=== PATIENT | male | born 1965 | race Caucasian/White ===

== ENCOUNTER 2022-10-30 18:29 | Emergency (ER) | payer OTHER, SELFPAY ==
[2022-10-30] VITALS (22 sets, daily range): BP systolic 112–140; BP diastolic 76–86; PULSE 95–116; TEMP 36.7; O2SAT 93–96; BMI 30.5
--- NOTE | 2022-10-30 20:03 | ED.ABDPAIN ---
HPI - Abdominal Pain General Time Seen by Provider: 20:03 Date Seen: 10/30/22 Chief Complaint: Abdominal Pain Stated Complaint: Jaundice, Dehydrated, Vomiting Time Seen by Provider: 10/30/22 20:02 Source: patient and RN notes reviewed Mode of arrival: ambulatory Limitations: no limitations History of Present Illness HPI narrative: Amee is a very pleasant 56-year-old male it is status post liver transplant, Guy-[place] why secondary to bile leak who comes to the emergency room for evaluation regarding jaundice and abdominal pain and nausea. Patient notes that over the past few days he has noticed yellowing of his skin and his eyes. He notes that the does have nausea and 2 nights ago had significant number of vomiting events. Today he has been able to take fluids and he was even able to drink and insure on the way here. He does state the nausea is somewhat persistent though. He notes that he has constant diarrhea and this has really not changed. He has a history of ulcerative colitis that resulted salted in a colectomy with a J-pouch dosed. He notes that her earlier today he did have some dysuria and his urine seemed dark brown. In July he was seen for his yearly appointment by his liver transplant team at [facility]. Family notes no worrisome findings at that time. In August of this year upon her return from a vagus trip he did have COVID but the symptoms were mild and he did not have to take any additional medications. Note that he is vaccinated and boosted. Four weeks ago he came down with influenza any describes that is much worse than COVID with episodes of vomiting and high fevers up to 103. He did recover from that although he still has an occasional cough. Today he notes no fevers or chills. He does have abdominal pain but did ask is declining any pain medication at this time. Related Data Home Medications Medication Instructions Recorded Confirmed albuterol 90 mcg/actuation aerosol 90 mcg inhalation DAILY PRN 10/30/22 10/30/22 inhaler aspirin 81 mg capsule 81 mg PO DAILY 10/30/22 10/30/22 febuxostat 40 mg tablet 40 mg PO DAILY 10/30/22 10/30/22 fluticasone 250 mcg-salmeterol 50 1 inh inhalation DAILY 10/30/22 10/30/22 mcg/dose blistr powdr for inhalation (Advair Diskus) metronidazole 250 mg tablet 250 mg PO DAILY PRN 10/30/22 10/30/22 montelukast 10 mg tablet 10 mg PO DAILY 10/30/22 10/30/22 omeprazole 40 mg capsule,delayed 40 mg PO DAILY 10/30/22 10/30/22 release ondansetron HCl 4 mg tablet 4 mg PO BID-TID PRN 10/30/22 10/30/22 Allergies Allergy/AdvReac Type Severity Reaction Status Date / Time allopurinol Allergy Severe shortness Verified 10/30/22 18:42 of breath ciprofloxacin Allergy Severe Rash Verified 10/30/22 18:42 chlorhexidine AdvReac Intermediate Rash Verified 10/30/22 18:42 Exam Const: Vital Signs, click to edit/add: Vital Signs - 24 hr 10/30/22 18:36 10/30/22 19:46 10/30/22 20:00 Temperature 98.1 F Pulse Rate 112 H 104 H Pulse Rate [Pulse Oximeter] 116 H Blood Pressure Blood Pressure [Ri ght Upper Arm] 115/78 Pulse Oximetry 94 96 [facility] 10/30/22 20:15 10/30/22 20:28 10/30/22 20:31 Temperature Pulse Rate 111 H Pulse Rate [Pulse Oximeter] Blood Pressure 126/85 122/78 Blood Pressure [Ri ght Upper Arm] Pulse Oximetry [facility] 10/30/22 21:01 10/30/22 21:04 10/30/22 21:22 Temperature Pulse Rate 108 H 102 H Pulse Rate [Pulse Oximeter] Blood Pressure 121/76 Blood Pressure [Ri ght Upper Arm] Pulse Oximetry 94 [facility] 10/30/22 21:30 10/30/22 21:31 10/30/22 21:45 Temperature Pulse Rate 102 H 102 H 104 H Pulse Rate [Pulse Oximeter] Blood Pressure 112/76 Blood Pressure [Ri ght Upper Arm] Pulse Oximetry 94 93 94 Oxygen Delivery Me thod 10/30/22 22:01 10/30/22 22:32 10/30/22 22:48 Temperature Pulse Rate 101 H Pulse Rate [Pulse Oximeter] Blood Pressure 121/80 140/82 H Blood Pressure [Ri ght Upper Arm] Pulse Oximetry 95 Oxygen Delivery Me thod 10/30/22 23:00 10/30/22 23:01 10/31/22 00:11 Temperature 98.6 F Pulse Rate 102 H 98 Pulse Rate [Pulse Oximeter] Blood Pressure 136/86 Blood Pressure [Ri ght Upper Arm] Pulse Oximetry 93 94 Oxygen Delivery Me thod 10/30/22 23:02 10/30/22 23:15 10/30/22 23:32 Temperature Pulse Rate 96 95 96 Pulse Rate [Pulse Oximeter] Blood Pressure 123/79 Blood Pressure [Ri ght Upper Arm] Pulse Oximetry 94 93 95 Oxygen Delivery Me thod 10/30/22 23:33 10/30/22 23:45 10/31/22 00:00 Temperature Pulse Rate 98 98 96 Pulse Rate [Pulse Oximeter] Blood Pressure Blood Pressure [Ri ght Upper Arm] Pulse Oximetry 93 93 94 Oxygen Delivery Me thod 10/31/22 00:01 Temperature Pulse Rate 97 Pulse Rate [Pulse Oximeter] Blood Pressure 118/77 Blood Pressure [Ri ght Upper Arm] Pulse Oximetry 93 Oxygen Delivery Me thod Course Course Hospital Course: will place an IV and obtain labs to include CBC, basic panel, liver function tests, lipase, CRP, urinalysis, chest x-ray. Will give 1 L of normal saline and Zofran 4 mg IV. Plan on discussion with transplant team at [facility] once these results have Been returned Reevaluation(s) Reevaluation #1: Patient improved after initial dose of Zofran but nausea has now been returning. Will use Ativan 0.5 mg x 1. Did have the pleasure of speaking with Dr. Sharon whitehead [facility] transplant team regarding this patient. CT does not show any marked difference from July of 2022. We have been advised to transfer patient to [facility] for specialty consultation. Vital Signs Vital signs: Initial Vital Signs Temperature 98.1 F 10/30/22 18:36 Temperature Source Temporal Artery Scan 10/30/22 18:36 Pulse Rate 116 H 10/30/22 18:36 Blood Pressure 115/78 10/30/22 18:36 Blood Pressure Mean 90 10/30/22 18:36 Blood Pressure Position Sitting 10/30/22 18:36 Pulse Oximetry 94 10/30/22 18:36 Oxygen Delivery Method Room Air 10/30/22 18:36 Vital Signs Temperature 98.1 F 10/30/22 18:36 Pulse Rate 116 H 10/30/22 18:36 Blood Pressure 115/78 10/30/22 18:36 Pulse Oximetry 94 10/30/22 18:36 Oxygen Delivery Method Room Air 10/30/22 18:36 Temperature 98.6 F 10/31/22 00:11 Pulse Rate 97 10/31/22 00:01 Blood Pressure 118/77 10/31/22 00:01 Pulse Oximetry 93 10/31/22 00:01 Oxygen Delivery Method Room Air 10/30/22 18:36 MDM - Abdominal Pain MDM Narrative Medical decision making narrative: 1. Elevated LFTs-jaundice noted in the past 3 days. Bilirubin elevated at 6.5 with direct bili reviewing 4.8. No obvious cause of jaundice on CT. Transfer to [facility] for specialty consultation. 2. Nausea-improved with Zofran. Nausea has now returned although there has been no episodes of vomiting. Will use Ativan 0.5 mg IV x1. 3. Tachycardia-improved with 1 L normal saline. Will continue with saline and 125 an hour. 2. Disposition-[facility]. BLS ambulance transfer. Currently awaiting bed placement. Accepted for transfer by . Lab Data Attestation: I reviewed the patient's lab results. Labs: Lab Results 10/30/22 10/30/22 Range/Units 20:15 20:48 WBC 7.40 (4.50-11.00) K/uL RBC 5.54 (4.30-5.90) m/uL Hgb 16.3 (13.5-17.5) gm/dL Hct 47.8 (37.0-53.0) % MCV 86 (80-100) fL MCH 29 (26-34) pg MCHC 34 (32-36) gm/dL RDW Coeff of Antonino 14.1 (11.5-15.5) % Plt Count 148 (140-440) K/uL Neut % (Auto) 72.7 H (42.0-72.0) % Lymph % (Auto) 13.4 L (20-44) % [place] % (Auto) 9.9 (0.0-11.0) % Eos % (Auto) 3.6 (0.0-7.0) % Baso % (Auto) 0.3 (0.0-3.0) % Neut # (Auto) 5.40 (1.7-7.0) K/uL Lymph # (Auto) 1.00 (0.90-2.90) K/uL [place] # (Auto) 0.70 (0.00-0.90) K/UL Eos # (Auto) 0.27 (0.00-0.50) K/uL Baso # (Auto) 0.02 (0.00-0.30) K/uL Sodium 137 (135-149) mmol/L Potassium 3.6 (3.6-5.1) mmol/L Chloride 103 (96-114) mmol/L Carbon Dioxide 27 (20-32) mmol/L BUN 13 (7-30) mg/dL Creatinine 1.1 (0.5-1.5) mg/dL Estimated Creat Clear 71.78 Estimated GFR 80 ml/min Glucose 142 H (60-115) mg/dL Calcium 8.8 (8.4-10.6) mg/dL Total Bilirubin 6.5 H (0.1-1.5) mg/dL Direct Bilirubin 4.8 H (0.0-0.5) mg/dL AST 126 H (12-35) U/L ALT 203 H (4-50) U/L Alkaline Phosphatase 76 (40-150) U/L Ammonia 18.0 (13.1-30.0) umol/L C-Reactive Protein 8.3 H (0.5-1.0) mg/dL Total Protein 7.4 (6.0-8.3) g/dL Albumin 4.0 (3.3-5.0) g/dL Lipase 119 (23-300) U/L Urine Color [place] A (Yellow) Urine Appearance Clear (Clear) Urine pH 6.0 (5.0-8.5) Ur Specific [place] 1.015 (1.000-1.030) Urine Protein Trace A (Negative) Urine Glucose (UA) Negative (Negative) Urine Ketones Trace A (Negative) Urine Blood Negative (Negative) Urine Nitrite Negative (Negative) Urine Bilirubin 3+ A (Negative) Urine Urobilinogen 0.2 (0.2-1.0) Ur Leukocyte Esterase Negative (Negative) Urine RBC 0-2 (0-2) Urine WBC 2-5 (0-5) Urine WBC Clumps None (None) Ur Squamous Epith Cells None (None-Few) Urine Bacteria Few A (None) Imaging Data Chest x-ray: Attestation: I have reviewed the pertinent imaging results. My impression: no obvious infiltrates. Radiologist's impression: Cardiovascular and mediastinum: Heart size and vasculature are normal in caliber and appearance. Lungs and pleural spaces: Lungs are clear. No sign of infiltrate or mass. No sign of pleural effusion. No pneumothorax.? Bones and soft tissues: No significant findings. IMPRESSION: Unremarkable chest. CT scan - abdomen: Attestation: I have reviewed the pertinent imaging results. Radiologist's impression: Lower chest: Scattered atelectasis. Liver: Postsurgical changes about the IVC which could correlate with history of liver transplantation. Gallbladder and bile ducts: Possible nondistended gallbladder versus cystic duct remanent with tiny gallstone (favored to be cystic duct remanent given history of liver transplantation:. Re-demonstration of pneumobilia, increased since most recent study but similar to prior study performed March 03, 2019. Pancreas: Unremarkable. No mass or inflammation. Spleen: Unremarkable. Normal in size. No masses. Adrenal glands: Unremarkable. No nodules. Kidneys: Bilateral nonobstructing stones.. No suspicious masses,? or hydronephrosis. GI tract: Postsurgical changes of colectomy.. Normal in caliber. No sign of mass or inflammation. Vasculature: Abdominal aorta is normal in caliber. Mesenteric arteries are patent. Lymph nodes: No lymphadenopathy. Peritoneum/Abdominal Wall: Unremarkable. No sign of mass or infiltration. No free air or significant free fluid. Pelvis: Unremarkable. Bones: Unremarkable for age. IMPRESSION: Postsurgical changes of hepatic transplantation. There is mild pneumobilia, increased since most recent study but similar to prior study performed March 03, 2019. Additional mild intrahepatic ductal dilation. Biliary anastomotic stricture or hepatic artery stenosis is not excluded in this patient with history of hepatic transplantation. Recommend consultation with the transplant team and further follow-up with hepatic transplant Doppler. Otherwise, no acute intra-abdominal/pelvic abnormality. Discharge Plan Discharge Clinical Impression: Elevated LFTs, Jaundice, Nausea Patient Disposition: Xfer [place] Discharge Location: [facility] Condition: Improved Prescriptions: No Action ondansetron HCl 4 mg tablet 4 mg PO BID-TID PRN omeprazole 40 mg capsule,delayed release(DR/EC) 40 mg PO DAILY montelukast 10 mg tablet 10 mg PO DAILY febuxostat 40 mg tablet 40 mg PO DAILY metronidazole 250 mg tablet 250 mg PO DAILY PRN fluticasone propion-salmeterol [Advair Diskus] 250-50 mcg/dose blister with device 1 inh inhalation DAILY aspirin 81 mg capsule 81 mg PO DAILY albuterol 90 mcg/actuation aerosol 90 mcg inhalation DAILY PRN Stand Alone Forms: [facility] Info Instructions
--- NOTE | 2022-10-30 20:15 | CRLHL7_ITS ---
For Patients: As a result of the Century Cures Act, medical imaging exams and procedure reports are released immediately into your electronic medical record. You may view this report before your referring provider. If you have questions, please contact your health care provider. INDICATION: Cough, jaundice. TECHNIQUE: Chest 2 view. COMPARISON: None. FINDINGS: Cardiovascular and mediastinum: Heart size and vasculature are normal in caliber and appearance. Lungs and pleural spaces: Lungs are clear. No sign of infiltrate or mass. No sign of pleural effusion. No pneumothorax. Bones and soft tissues: No significant findings. IMPRESSION: Unremarkable chest. Dictated by Farhat Morgan MD @ 10/30/2022 8:37:02 PM (Electronically Signed)
[2022-10-30] MEDS: ONDANSETRON 2 MG/ML inj 4 MG IVP (20:37)
[2022-10-30] MEDS: 0.9 % SODIUM CHLORIDE 1000 ml 1,000 ML IV (20:37)
[2022-10-30 20:52] LABS: Basophils Absolute Auto 0.02 K/uL (0.00-0.30); Basophils Percent Auto 0.3 % (0.0-3.0); Eosinophils Absolute Auto 0.27 K/uL (0.00-0.50); Eosinophils Percent Auto 3.6 % (0.0-7.0); Hematocrit 47.8 % (37.0-53.0); Hemoglobin* 16.3 gm/dL (13.5-17.5); Immature Granulocytes Abs Auto 0.01 K/uL (0.00-0.30); Immature Granulocytes Pct Auto 0.1 %; Lymphocytes Percent Auto 13.4 % (20-44); Mean Corpuscular HGB Conc 34 gm/dL (32-36); Mean Corpuscular Hemoglobin 29 pg (26-34); Mean Corpuscular Volume 86 fL (80-100); Monocytes Percent Auto 9.9 % (0.0-11.0); Neutrophils Percent Auto 72.7 % (42.0-72.0); Platelet Count* 148 K/uL (140-440); RDW Coefficient of Variation % 14.1 % (11.5-15.5); Red Blood Count 5.54 m/uL (4.30-5.90)
[2022-10-30 20:57] LABS: Slide Review Reflex No
[2022-10-30 21:12] LABS: Chloride* 103 mmol/L (96-114)
[2022-10-30 21:13] LABS: Potassium* 3.6 mmol/L (3.6-5.1); Sodium* 137 mmol/L (135-149)
[2022-10-30 21:15] LABS: Creatinine* 1.1 mg/dL (0.5-1.5); Est. Creatinine Clearance* 71.78; Estimated Glomerular Filt Rate 80 ml/min
[2022-10-30 21:16] LABS: Alanine Aminotransferase* 203 U/L (4-50); Alkaline Phosphatase* 76 U/L (40-150); Aspartate Amino Transferase* 126 U/L (12-35); Bilirubin Direct* 4.8 mg/dL (0.0-0.5); Bilirubin Total* 6.5 mg/dL (0.1-1.5); Blood Urea Nitrogen* 13 mg/dL (7-30); Calcium* 8.8 mg/dL (8.4-10.6); Carbon Dioxide* 27 mmol/L (20-32); Glucose* 142 mg/dL (60-115); Lipase* 119 U/L (23-300); Total Protein* 7.4 g/dL (6.0-8.3)
[2022-10-30 21:19] LABS: C Reactive Protein* 8.3 mg/dL (0.5-1.0)
--- NOTE | 2022-10-30 21:45 | CRLHL7_ITS ---
For Patients: As a result of the Century Cures Act, medical imaging exams and procedure reports are released immediately into your electronic medical record. You may view this report before your referring provider. If you have questions, please contact your health care provider. INDICATION: Jaundice. TECHNIQUE: CT abdomen and pelvis acquired with 95 cc Isovue 370 IV contrast. COMPARISON: July 19, 2022. July 02, 2022. March 03, 2019. FINDINGS: Lower chest: Scattered atelectasis. Liver: Postsurgical changes about the IVC which could correlate with history of liver transplantation. Gallbladder and bile ducts: Possible nondistended gallbladder versus cystic duct remanent with tiny gallstone (favored to be cystic duct remanent given history of liver transplantation:. Re-demonstration of pneumobilia, increased since most recent study but similar to prior study performed March 03, 2019. Pancreas: Unremarkable. No mass or inflammation. Spleen: Unremarkable. Normal in size. No masses. Adrenal glands: Unremarkable. No nodules. Kidneys: Bilateral nonobstructing stones.. No suspicious masses, or hydronephrosis. GI tract: Postsurgical changes of colectomy.. Normal in caliber. No sign of mass or inflammation. Vasculature: Abdominal aorta is normal in caliber. Mesenteric arteries are patent. Lymph nodes: No lymphadenopathy. Peritoneum/Abdominal Wall: Unremarkable. No sign of mass or infiltration. No free air or significant free fluid. Pelvis: Unremarkable. Bones: Unremarkable for age. IMPRESSION: Postsurgical changes of hepatic transplantation. There is mild pneumobilia, increased since most recent study but similar to prior study performed March 03, 2019. Additional mild intrahepatic ductal dilation. Biliary anastomotic stricture or hepatic artery stenosis is not excluded in this patient with history of hepatic transplantation. Recommend consultation with the transplant team and further follow-up with hepatic transplant Doppler. Otherwise, no acute intra-abdominal/pelvic abnormality. Case discussed with Hanna Garcia at 9:20 p.m. on 10/30/2022. Please note that all CT scans at this facility use dose modulation, iterative reconstruction, and/or weight-based dosing when appropriate to reduce radiation dose to as low as reasonably achievable. Dictated by Ayden Malagon MD @ 10/30/2022 11:31:35 PM (Electronically Signed)
[2022-10-30 22:00] LABS: Bilirubin Urine 3+ (Negative); Blood Urine Negative (Negative); Glucose Urine Negative (Negative); Ketones Urine Trace (Negative); Leukocyte Esterase Urine Negative (Negative); Nitrite Urine Negative (Negative); Protein Urine Trace (Negative); Specific Gravity Urine 1.015 (1.000-1.030); Urobilinogen Urine 0.2 (0.2-1.0)
[2022-10-30 22:01] LABS: Appearance Urine Clear (Clear); Color Urine Amber (Yellow)
[2022-10-30 22:13] LABS: RBC Urine 0-2 (0-2)
[2022-10-30 22:14] LABS: Bacteria Urine Few
[2022-10-31] VITALS (24 sets, daily range): BP systolic 103–125; BP diastolic 71–81; PULSE 87–99; RESP 18; TEMP 36.4–37; O2SAT 91–96
[2022-10-31] MEDS: LORazepam 2 MG/ML inj 0.5 MG IVP (01:08)
--- NOTE | 2022-10-31 01:17 | ED.NURSE ---
urine output 225ml- dark tea colored urine
--- NOTE | 2022-10-31 02:50 | ED.NURSE ---
Patient accepted to [facility]. He will go to the [facility]. They would like patient there at about 0500AM. Transport called to arrange transport for approximally 0400AM. Patient updated regarding plan of care. He is agreeable. He reports no nausea at this time. He ambulates to the restroom independently.
--- NOTE | 2022-10-31 04:07 | ED.NURSE ---
Report to KRISTI Villavicencio at [facility] in [place]. Will call when patient officially leaves hospital.
--- NOTE | 2022-10-31 04:34 | ED.NURSE ---
Patient transferred to [facility] via EMS. [place] called and updated regarding transport. Patient was sent with all belongings. IV left in place for transport. Patient was sent with face sheet, transfer consent, PCD form, ED transfer report, labs, MD note, nursing notes and images were pushed to [place].
== END 2022-10-31 04:38 | disposition short-term general hospital (02) ==
PROVIDERS: Emergency Provider Family Medicine
DX: R17 Unspecified jaundice (principal); R11.0 Nausea; R79.89 Other specified abnormal findings of blood chemistry
CPT/HCPCS: 36415; 71046; 74177; 80048; 80076; 81001; 82140; 83690; 85025; 86140; 87086; 96361; 96374; 96375; 99285; J2060; J2405; J7030; Q9967

== ENCOUNTER 2022-10-31 04:30 | Outpatient (CLI) | payer OTHER, SELFPAY | END 2022-10-31 04:31 | disposition home or self-care (01) | LOC: AMB 11-14 08:03 | PROVIDERS: Visit Provider Family Medicine | DX: R10.9 Unspecified abdominal pain (principal) | CPT/HCPCS: A0425; A0428 ==

== ENCOUNTER 2023-09-09 20:00 | Emergency (ER) | payer OTHER, SELFPAY ==
[2023-09-09 20:16] VITALS: BP 171/94; PULSE 107; RESP 24; TEMP 36.3; O2SAT 93; BMI 29.8
--- NOTE | 2023-09-09 20:40 | ED.GENADULT ---
HPI - General Adult General Chief complaint: Shortness of Breath/Dyspnea Stated complaint: Diff breathing O2 85% Time Seen by Provider: 09/09/23 20:33 History of Present Illness HPI narrative: Patient here with asthma exacerbation after cleaning carpets. Sats at home 85-89%. Took 4 doses of albuterol inhaler. 57-year-old man presenting to the emergency department with concern of shortness of breath. Does have a history of asthma. Apparently was cleaning carpets and has been increasingly short of breath since that time today. Admittedly is doing better now arriving here at the emergency department. Has not had fever cough cold symptoms prior. 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 Arrives oxygenating 93% on room air. Has been sometime since he has had evaluation for asthma. Prescribed Advair. Montelukast as well. Not known to have COPD. Does not smoke. No rash. No sensation of throat closure really. This shortness of breath though hit him rather quickly. Feeling better he is not sure that he needs further treatment here at least in the emergency department. Related Data Home Medications Medication Instructions Recorded Confirmed albuterol 90 mcg/actuation aerosol 90 mcg inhalation DAILY PRN 10/30/22 10/30/22 inhaler aspirin 81 mg capsule 81 mg PO DAILY 10/30/22 10/30/22 febuxostat 40 mg tablet 40 mg PO DAILY 10/30/22 10/30/22 fluticasone 250 mcg-salmeterol 50 1 inh inhalation DAILY 10/30/22 10/30/22 mcg/dose blistr powdr for inhalation (Advair Diskus) metronidazole 250 mg tablet 250 mg PO DAILY PRN 10/30/22 10/30/22 montelukast 10 mg tablet 10 mg PO DAILY 10/30/22 10/30/22 omeprazole 40 mg capsule,delayed 40 mg PO DAILY 10/30/22 10/30/22 release ondansetron HCl 4 mg tablet 4 mg PO BID-TID PRN 10/30/22 10/30/22 Previous Rx's Medication Instructions Recorded albuterol sulfate 90 mcg/actuation 2 puff inhalation Q2-3H PRN #6.7 09/09/23 aerosol inhaler grams Allergies Allergy/AdvReac Type Severity Reaction Status Date / Time allopurinol Allergy Severe shortness Verified 10/30/22 18:42 of breath ciprofloxacin Allergy Severe Rash Verified 10/30/22 18:42 chlorhexidine AdvReac Intermediate Rash Verified 10/30/22 18:42 Review of Systems Status of ROS: Reports: 6 or more systems reviewed and unremarkable except as noted in History and below [facility] Social History Smoking Status: Never smoker How often do you have a drink containing alcohol: monthly or less AUDIT-C Alcohol total score: 1 service: No Exam Narrative: Exam Narrative: Very pleasant. Mildly labored and mildly tachypneic. Just a little tremulous. Speaking in full sentences. No swelling of lips or mucosal membranes apparent. No stridor. Trace wheeze lungs with good air movement. Heart with elevated regular rate. Skin is warm and dry without apparent rash. Const: Vital Signs, click to edit/add: Vital Signs - 24 hr 09/09/23 20:16 Temperature 97.4 F L Pulse Rate [Pulse Oximeter] 107 H Respiratory Rate 24 Blood Pressure [Ri t Upper Arm] 171/94 H Pulse Oximetry 93 Oxygen Delivery Me thod Room Air Documenting provider has reviewed patient's vital signs: yes Course Vital Signs Vital signs: Initial Vital Signs Temperature 97.4 F L 09/09/23 20:16 Temperature Source Temporal Artery Scan 09/09/23 20:16 Pulse Rate 107 H 09/09/23 20:16 Pulse Rhythm Regular 09/09/23 20:16 Respiratory Rate 24 09/09/23 20:16 Blood Pressure 171/94 H 09/09/23 20:16 Blood Pressure Mean 119 H 09/09/23 20:16 Blood Pressure Position Sitting 09/09/23 20:16 Pulse Oximetry 93 09/09/23 20:16 Oxygen Delivery Method Room Air 09/09/23 20:16 Vital Signs Temperature 97.4 F L 09/09/23 20:16 Pulse Rate 107 H 09/09/23 20:16 Respiratory Rate 24 09/09/23 20:16 Blood Pressure 171/94 H 09/09/23 20:16 Pulse Oximetry 93 09/09/23 20:16 Oxygen Delivery Method Room Air 09/09/23 20:16 Temperature 98.0 F 09/09/23 21:18 Pulse Rate 99 09/09/23 21:18 Respiratory Rate 24 09/09/23 21:18 Blood Pressure 154/84 H 09/09/23 21:18 Pulse Oximetry 93 09/09/23 21:18 Oxygen Delivery Method Room Air 09/09/23 21:18 Medical Decision Making MDM Narrative Medical decision making narrative: Indeed appears to be doing fairly well at this time. Would treat this as an allergic exposure triggering his reactive airway. Does not appear to need inhaler at the moment. Does not appear to have runaway allergic reaction at this time. Perhaps there was some laryngospasm? Was ultimately observed following triage over approximally an hour in the emergency department. See discharge plan for further discussion Medical Records Medical records reviewed: Yes I reviewed the patient's medical records Discharge Plan Discharge Clinical Impression: Asthma attack Patient Disposition: Home w/ Parent or Adult Condition: Improved Instructions: Asthma (ED) Additional Instructions: As discussed, take prednisone 20 mg 2 times daily over the next 3 days. I am sending in refill of your albuterol inhaler. Would recommend using this with a spacer. It might be a good idea to follow up with primary care to review your pulmonary function and medications. Please feel free to return for persistent increasing shortness of breath unrelieved with your albuterol inhaler, any sensation of throat closure or tightening (after taking a dose of diphenhydramine) Prescriptions: New albuterol sulfate 90 mcg/actuation HFA aerosol inhaler 2 puff inhalation Q2-3H PRNQty: 6.7 1RF No Action ondansetron HCl 4 mg tablet 4 mg PO BID-TID PRN omeprazole 40 mg capsule,delayed release(DR/EC) 40 mg PO DAILY montelukast 10 mg tablet 10 mg PO DAILY febuxostat 40 mg tablet 40 mg PO DAILY metronidazole 250 mg tablet 250 mg PO DAILY PRN fluticasone propion-salmeterol [Advair Diskus] 250-50 mcg/dose blister with device 1 inh inhalation DAILY aspirin 81 mg capsule 81 mg PO DAILY albuterol 90 mcg/actuation aerosol 90 mcg inhalation DAILY PRN Follow Up/Referrals: Provider,Not a Local [Referring] - Stand Alone Forms: [employer] Info Instructions
[2023-09-09 21:18] VITALS: BP 154/84; PULSE 99; RESP 24; TEMP 36.7; O2SAT 93
== END 2023-09-09 21:18 | disposition home or self-care (01) ==
PROVIDERS: Emergency Provider Family Medicine; PCP Family Medicine
DX: J45.901 Unspecified asthma with (acute) exacerbation (principal)
CPT/HCPCS: 99283; 99284